=== PATIENT | female | born 2005 | race African-American/Black ===

== ENCOUNTER 2025-01-04 21:24 | Emergency (ER) | payer OTHER ==
[2025-01-04] MEDS ORDERED: Ibuprofen 200 MG TAB ONE (22:25)
== END 2025-01-04 22:58 ==
LOC: CSHERS 21:24
DX: J06.9 Acute upper respiratory infection, unspecified (principal)
CPT/HCPCS: 87428; 99284

== ENCOUNTER 2025-01-13 10:19 | Emergency (ER) | payer OTHER | END 2025-01-13 11:28 | disposition home or self-care (01) | LOC: CSHERS 10:19 | DX: L30.9 Dermatitis, unspecified (principal) ==